=== PATIENT | male | born 1955 | race Caucasian/White ===

== ENCOUNTER 2021-09-01 14:10 | Inpatient (IN) | payer OTHER, MEDICAID ==
[~2021-09-01] VITALS: Ht 152.4 cm; Wt 66.7 kg
[~2021-09-01 14:10] MED LIST: [UNRECOGNIZED DRUG - REMARK] PO
[2021-09-01 14:29] VITALS: BP 124/75
[2021-09-01 15:38] LABS: BASOPHILS % (AUTO) 0.2 % (0.0-2.0); EOSINOPHILS # (AUTO) 0.1 K/uL (0-0.4); EOSINOPHILS % (AUTO) 1.2 % (0.0-4.0); HEMATOCRIT 39.9 % (36-52); LYMPHOCYTES # (AUTO) 1.1 K/uL (2.0-11.5); LYMPHOCYTES % (AUTO) 9.9 % (20.5-51.1); MEAN CORPUSCULAR HEMOGLOBIN 25 pg (27-31); MEAN CORPUSCULAR HGB CONC 33 g/dL (33-37); MEAN CORPUSCULAR VOLUME 75.6 fL (80-94); MONOCYTES # (AUTO) 0.6 K/uL (0.8-1.0); MONOCYTES % (AUTO) 5.5 % (1.7-9.3); NEUTROPHILS # (AUTO) 9.4 K/uL (1.8-7.7); NEUTROPHILS % (AUTO) 83.2 % (42.2-75.2); PLATELET COUNT (AUTO) 155 K/uL (140-450); RED BLOOD CELL COUNT(AUTO) 5.28 MIL/uL (4.20-6.10); RED CELL DISTRIBUTION WIDTH 16.1 % (11.6-13.7); WHITE BLOOD COUNT (AUTO) 11.3 K/uL (4.8-10.8)
[2021-09-01 15:47] LABS: ANION GAP 14.7 (8-16); CARBON DIOXIDE 26.6 mmol/L (21-32); CREATININE 0.9 mg/dL (0.6-1.3); POTASSIUM 4.3 mmol/L (3.5-5.1); TOTAL BILIRUBIN 0.5 mg/dL (0.0-1.0)
[2021-09-01] MEDS ORDERED: ASPIRIN 325 MG TAB PO ONE (19:05)
--- NOTE | 2021-09-01 19:18 | NUR ---
65 y/o male, c/o cp, abd pain and khanna that started yesterday. skin is pink/warm/dry. a&o x4 with even and steady gait. lungs clear bl, heart rate even and regular. pt denies dysuria, hematuria, urinary frequency or retention, or anyone sick in the household with the same symptoms. pt denies any fever, sob, or cough at this time. pt states pain is 10/10 at this time. ermd made aware of pt. pmh: htn, dm2, enlarged prostate nka med: states he took dm2 meds, but not htn
[2021-09-01] MEDS ORDERED: NITROGLYCERIN 0.4 MG TAB SL ONE (19:20)
[2021-09-01] MEDS ORDERED: ONDANSETRON 4 MG/2 ML VIAL IM/IVP PRN (21:35)
[2021-09-01] MEDS ORDERED: MORPHINE SULFATE 2 MG/ML SYR IVP PRN (21:35)
[2021-09-01] MEDS ORDERED: ACETAMINOPHEN 325 MG TAB PO PRN (21:35)
[2021-09-01] MEDS ORDERED: NITROGLYCERIN 0.4 MG TAB SL PRN (21:35)
[2021-09-01] MEDS ORDERED: guaiFENesin DM 200/20 MG-10 ML 10 ML UDC PO PRN (21:35)
[2021-09-01] MEDS ORDERED: POTASSIUM CHLORIDE 10 MEQ TABER PO PRN (21:35)
[2021-09-01] MEDS ORDERED: DOCUSATE SODIUM 100 MG GELCAP PO PRN (21:35)
[2021-09-01] MEDS ORDERED: HYDROcodone/APAP 7.5/325 MG 1 TAB PO PRN (21:35)
[2021-09-01] MEDS ORDERED: LOVENOX 1MG/KG Q12H SUBQ SCH (21:55)
[2021-09-01] MEDS ORDERED: ASPIRIN 325 MG TAB ONE (22:32)
[2021-09-01 22:44] LABS: MAGNESIUM 1.6 mg/dL (1.8-2.4); PHOSPHORUS 4.5 mg/dL (2.5-4.9)
--- NOTE | 2021-09-01 23:00 | NUR ---
65YR OLD MALE C/O CP SOB. PT IS A TELE HOLD. 06/24 PAIN LEVEL . A&OX4. ICELANDIC SPEAKING UNDERSTANDS DIVEHI. [id number]% RA NO DISTRESS NOTED. PT ON MONITOR . PT STATES ABD PAIN RADIATES TO CHEST THEN TO NECK, JAW AND BACK. PT ON BED RESTING RESP EVEN AND UNLABORED. SIDE RAILS UP X1 BED AT LOWEST POSITION NKDA HTN DM
--- NOTE | 2021-09-01 23:58 | NUR ---
TROP 2066. DR BROWER NOTIFED VIA TEXT AWAITING FOR A REPLY
[2021-09-02] MEDS ORDERED: ENOXAPARIN 60 MG/0.6 ML SYR SUBQ ONE (00:26)
--- NOTE | 2021-09-02 00:40 | NUR ---
PT RESTING IN BED RESP EVEN AND UNLABORED.
[2021-09-02] MEDS: ZOLPIDEM 5 MG TAB PO PRN (02:36)
--- NOTE | 2021-09-02 02:50 | NUR ---
URINE COLLECTED AND SENT TO LAB
--- NOTE | 2021-09-02 03:40 | NUR ---
PT SLEEPING RESP EVEN AND UNLABORED. ON BEDSIDE MONITOR. SIDE RAILS UP X1. BED AT LOWEST POSITION. WILL CONTINUE TO MONITOR AND OFFER SUPPORT WHEN NEEDED
--- NOTE | 2021-09-02 05:03 | NUR ---
COVID SWAB COLLECTED AND SENT
[2021-09-02 07:18] LABS: BASOPHILS % (AUTO) 0.3 % (0.0-2.0); EOSINOPHILS # (AUTO) 0.2 K/uL (0-0.4); EOSINOPHILS % (AUTO) 1.9 % (0.0-4.0); HEMATOCRIT 38.1 % (36-52); HEMOGLOBIN 12.5 g/dL (12.0-18.0); LYMPHOCYTES # (AUTO) 2.4 K/uL (2.0-11.5); LYMPHOCYTES % (AUTO) 25.6 % (20.5-51.1); MEAN CORPUSCULAR HEMOGLOBIN 25 pg (27-31); MEAN CORPUSCULAR HGB CONC 33 g/dL (33-37); MEAN CORPUSCULAR VOLUME 75.3 fL (80-94); MONOCYTES # (AUTO) 0.8 K/uL (0.8-1.0); MONOCYTES % (AUTO) 8.1 % (1.7-9.3); NEUTROPHILS % (AUTO) 64.1 % (42.2-75.2); PLATELET COUNT (AUTO) 152 K/uL (140-450); RED BLOOD CELL COUNT(AUTO) 5.06 MIL/uL (4.20-6.10); RED CELL DISTRIBUTION WIDTH 16.2 % (11.6-13.7); WHITE BLOOD COUNT (AUTO) 9.3 K/uL (4.8-10.8)
--- NOTE | 2021-09-02 07:25 | NUR ---
REPORT RECIEVED FROM KLAUS VAZQUEZ FOR TRANSFER OF CARE.
[2021-09-02 07:32] LABS: ANION GAP 13.9 (8-16); CARBON DIOXIDE 26.1 mmol/L (21-32); CREATININE 0.9 mg/dL (0.6-1.3)
--- NOTE | 2021-09-02 08:26 | NUR ---
Patient was offered his breakfast tray, patient does not want to eat at this moment. Tray left at bedside.
--- NOTE | 2021-09-02 08:44 | NUR ---
Patient is sitting up on bed and assisted with his breakfast tray.
[2021-09-02] MEDS ORDERED: METOPROLOL 25 MG TAB PO SCH (09:00)
[2021-09-02] MEDS ORDERED: lisinopriL 5 MG TAB PO SCH (09:00)
--- NOTE | 2021-09-02 09:00 | NUR ---
Patient ambulated with steady gait to the restroom.
[2021-09-02] MEDS ORDERED: LISI20TA29 PO (09:19)
[2021-09-02] MEDS ORDERED: METF-350 PO (09:19)
[2021-09-02] MEDS ORDERED: ATOR40TA PO (09:19)
[2021-09-02] MEDS: ECOTRIN 81 MG TABEC PO SCH (09:20)
[2021-09-02] MEDS: PANTOPRAZOLE 40 MG TABEC PO SCH (09:21)
[2021-09-02] MEDS ORDERED: CRUSHER, PILL MC ONE (09:22)
--- NOTE | 2021-09-02 09:55 | NUR ---
Med Recon completed.
--- NOTE | 2021-09-02 10:02 | NUR ---
Ultrasound at bedside.
[2021-09-02] MEDS ORDERED: TERA5CAP8 PO (10:05)
[2021-09-02] MEDS ORDERED: FINA5TAB1 PO (10:05)
--- NOTE | 2021-09-02 10:33 | NUR ---
Clarified Lovenox order with Dr. Valiente. Recieved order to D/C Lovenox 1mg/kg and start Heparin 5000 Sub Q BID. Orders are carried out.
--- NOTE | 2021-09-02 12:45 | NUR ---
Patient is sitting up eating his lunch.
--- NOTE | 2021-09-02 14:03 | NUR ---
PATIENT HAS BEEN SCREENED AND CATEGORIZED LOW NUTRITION RISK. PATIENT WILL BE SEEN WITHIN 7 DAYS OF ADMISSION. 09/08/[address]
[2021-09-02] MEDS ORDERED: HEPARIN PER PHARMACY MC PRN (14:20)
[2021-09-02] MEDS ORDERED: INSULIN LISPRO SLIDING SCALE 100 UNITS/ML VIAL SUBQ PRN (14:20)
[2021-09-02] MEDS ORDERED: hePARIN / DEXT 5% PREMIX 250 ML IV SCH (14:20)
[2021-09-02] MEDS ORDERED: DEXTROSE 50% 50 ML SYR IVP PRN (14:20)
--- NOTE | 2021-09-02 14:25 | NUR ---
Dr. Valiente evaluating patient at bedside.
--- NOTE | 2021-09-02 14:55 | NUR ---
LAB AT BEDSIDE.
--- NOTE | 2021-09-02 16:00 | NUR ---
Patient ambulated with steady gait to restroom.
[2021-09-02] MEDS: ENOXAPARIN 60 MG/0.6 ML SYR SUBQ SCH (16:20)
--- NOTE | 2021-09-02 16:20 | NUR ---
New order for Lovenox clarified with Dr. Freitas. Heparin was given 4 hours ago and per MD michel to give Lovenox.
[2021-09-02] MEDS: BLOOD GLUCOSE MONITORING 1 DEV DEV FS SCH ×2 (16:49→21:32)
[2021-09-02] MEDS ORDERED: ATORVASTATIN 20 MG TAB PO SCH ×2 (17:00→21:00)
[2021-09-02] MEDS: metFORMIN 850 MG TAB PO SCH (17:28)
--- NOTE | 2021-09-02 18:13 | NUR ---
Patient was offered his dinner tray. Patient is sitting up eating meal.
--- NOTE | 2021-09-02 19:19 | NUR ---
Pt report given to KLAUS Henson. Transfer of care at this time.
--- NOTE | 2021-09-02 20:12 | NUR ---
Report received from Natividad TELLES pt was still in ER to be admited to ICU room #1
--- NOTE | 2021-09-02 20:23 | NUR ---
Patient will be admitted to care of [facility]. Admited to ICU. Will go to room 1. Belongings list completed. Report to
--- NOTE | 2021-09-02 20:30 | NUR ---
Assumed pt care admitted to ICU room #1 awake alert ambulatory denies chest pain, dizziness, no complain assisted to bed vitals signs stable, HR 63 sinus rhythm, afebrile 97.3 , on room air 96% O2 SAT, and no sign of distress noted. Orentation to the unit education on care plan, he verbalized understanding pt understands [place] but speaks moroccan fluently, left upper extremities in sling due to injury sustained at work on also two points of incision sites noted on the shoulder still painful to touch will continue to monitor and treat as per care plan.
[2021-09-02 22:00] VITALS: BP 123/85
[2021-09-02 23:16] LABS: APPEARANCE,URINE CLEAR (CLEAR); BILIRUBIN,URINE NEGATIVE (NEGATIVE); BLOOD, URINE NEGATIVE (NEGATIVE); COLOR,URINE YELLOW (YELLOW); LEUKOCYTE ESTERASE ,URINE NEGATIVE (NEGATIVE); NITRITE, URINE NEGATIVE (NEGATIVE); PH,URINE 6.5 (5.0-9.0); UGLUCOSE NEGATIVE (NEGATIVE)
--- NOTE | 2021-09-02 23:30 | NUR ---
Assisted with CHG bath pt tolerates well stood at the bedside, linen changed pt stood at the bedside denies dizziness no complain and vitals stable .
[2021-09-02 23:48] LABS: BARBITURATE, URINE NEGATIVE ng/ml (NEG <=200); BENZODIAZEPINE, URINE NEGATIVE ng/mL (NEG <=200); CANNABINOID, URINE NEGATIVE ng/mL (NEG <=50); COCAINE, URINE NEGATIVE ng/mL (NEG <=300); OPIATE, URINE NEGATIVE ng/mL (NEG <=2000); PHENCYCLIDINE SCREEN,URINE NEGATIVE ng/mL (NEG <=25)
[2021-09-03] MEDS: ZOLPIDEM 5 MG TAB PO PRN (01:27)
--- NOTE | 2021-09-03 02:30 | NUR ---
@0127 Pt asked for something to help hiim sleep, Ambien and Hydrocodone for sholder pain 5/10 effective intervention pt fell asleep and no sign of distress noted
[2021-09-03] MEDS: ENOXAPARIN 60 MG/0.6 ML SYR SUBQ SCH ×2 (04:23→16:48)
[2021-09-03 06:08] LABS: BASOPHILS % (AUTO) 0.4 % (0.0-2.0); EOSINOPHILS # (AUTO) 0.3 K/uL (0-0.4); HEMATOCRIT 39.6 % (36-52); LYMPHOCYTES # (AUTO) 2.6 K/uL (2.0-11.5); LYMPHOCYTES % (AUTO) 33.3 % (20.5-51.1); MEAN CORPUSCULAR HEMOGLOBIN 25 pg (27-31); MEAN CORPUSCULAR HGB CONC 33 g/dL (33-37); MEAN CORPUSCULAR VOLUME 75.8 fL (80-94); MONOCYTES # (AUTO) 0.7 K/uL (0.8-1.0); MONOCYTES % (AUTO) 8.8 % (1.7-9.3); NEUTROPHILS # (AUTO) 4.1 K/uL (1.8-7.7); NEUTROPHILS % (AUTO) 53.5 % (42.2-75.2); PLATELET COUNT (AUTO) 157 K/uL (140-450); RED BLOOD CELL COUNT(AUTO) 5.22 MIL/uL (4.20-6.10); RED CELL DISTRIBUTION WIDTH 16.4 % (11.6-13.7); WHITE BLOOD COUNT (AUTO) 7.7 K/uL (4.8-10.8)
[2021-09-03 07:01] LABS: ANION GAP 15.1 (8-16); POTASSIUM 4.1 mmol/L (3.5-5.1)
--- NOTE | 2021-09-03 07:50 | NUR ---
Bedside report given to Shalini RN for continuity of care, as at this time pt awake alert vitals signs stable no changes in care plan and condition.
--- NOTE | 2021-09-03 07:55 | NUR ---
RECEIVED REPORT FROM KOKI DESAI AT THIS TIME. PT IS A&OX4, 97% ON RA, CALM AND COOPERATIVE, NSR ON PERSONNEL RESEARCH SCIENTIST. IV TO RIGHT HAND 22G SL. URINAL AT PT BEDSIDE. VSS WILL CONTINUE TO MONITOR.
[2021-09-03 08:00] VITALS: BP 119/58
[2021-09-03] MEDS: BLOOD GLUCOSE MONITORING 1 DEV DEV FS SCH ×4 (08:02→20:31)
[2021-09-03] MEDS: metFORMIN 850 MG TAB PO SCH ×2 (09:05→16:44)
[2021-09-03] MEDS: lisinopriL 20 MG TAB PO SCH (09:06)
[2021-09-03] MEDS: ECOTRIN 81 MG TABEC PO SCH (09:06)
[2021-09-03] MEDS: ATORVASTATIN 80 MG TAB PO SCH (09:07)
[2021-09-03] MEDS: PANTOPRAZOLE 40 MG TABEC PO SCH (09:08)
[2021-09-03] MEDS: FINASTERIDE 5 MG TAB PO SCH (09:08)
[2021-09-03 10:00] VITALS: BP 106/60
--- NOTE | 2021-09-03 10:43 | NUR ---
GAVE REPORT TO KOKI MAST IN TELE FOR PENDING TRANSFER.
--- NOTE | 2021-09-03 11:00 | NUR ---
REPORT RECEIVED BY DIE CUTTING MACHINE OPERATOR, JOHN. PT A/O X3. TONGAN SPEAKING WITH LITTLE GIBRALTARIAN. PT DENIES PAIN AT THIS TIME. NO SOB OR RESPIRATORY DISTRESS. ON RA. ON TELE. CARDIAC DIET. URINAL AT BEDSIDE. ENCOURAGE PT TO NOT EXERT HIMSELF. R HAND #22 SL. L ARM SLING IN PLACE. NEEDS ALL MET AT THIS TIME. ORIENTED PT TO ROOM. SAFETY MEASURES IN PLACE.
--- NOTE | 2021-09-03 11:18 | NUR ---
DC PLANNING: ORDER RECEIVED FOR PATIENT TO GO TO [facility] IN AM FOR A CARDIAC CATH AT 0730. CM SPOKE WITH OP SCHEDULING, ORDERS AND CLINICALS FAXED TO THEM, CURRENTLY BEING REVIEWED BY THE CHARGE NURSE SON. CM WAITING FOR SON TO CALL TO CONFIRM ACCEPTANCE FOR PROCEDURE, AMBULANCE TRANSPORT WILL THEN BE ARRANGED. THE PATIENT PRESENTED TO THE ED WITH C/O UPPER ABDOMINAL PAIN WITH RADIATION TO THE CHEST AND JAW. ALSO C/O SOB, N/V. HO GERD, HTN AND HYPERLIPIDEMIA. DELTA TROPONIN 121, EKG SHOWED T WAVE INVERSIONS, SUBSEQUENT HIGH SENSITIVITY TROPONINS WERE 2067 AND 6067. CARDIOLOGY CONSULT WITH DR TEJADA ORDERED, HE THEN ARRANGED FOR THE CARDIAC CATH AT [facility]. CM WILL FOLLOW. Addendum: 09/03/21 at 1449 by Carly Diaz CM DC PLANNING: THE PATIENT WILL BE PICKED UP BY [facility] ([phone]) AT 0600 FOR A 0730 HEART CATH. RETURN TRIP FROM [facility] SET UP ON WILL CALL WITH [facility]. MEDICARE DOES NOT COVER AMBULANCE TRANSPORT, TRIP WILL BE VOUCHERED. MARKER DELIVERY TIME ENDORSED TO THE CHARGE NURSE ON [facility]. WILL FOLLOW. Addendum: 09/04/21 at 0925 by Carly Diaz CM DC PLANNING: MESSAGE LEFT FOR DR TEJADA INFORMING HIM OF CANCELLATION OF CARDIAC CATH BECAUSE AMBULANCE WAS LATE, PATIENT ARRIVED 10 MINUTES LATE TO [facility]. BALTA ALSO SPOKE WITH ESPERANZA AT [facility] TO DISCUSS WHAT HAPPENED AND TO ASK ABOUT FINANCIAL RESPONSIBILITY FOR THIS HOSPITAL FOR TRANSPORT GIVEN THAT PROCEDURE DID NOT HAPPEN BECAUSE [facility] WAS LATE. ESPERANZA ENDORSED THAT THEY'VE HAD MULTIPLE 911 CALLS, PATIENT NEEDS ALSO TRANSPORT AND ALS CREW WAS DIVERTED TO 911 CALL BEFORE PICKING PATIENT UP. ESPERANZA STATES SHE WILL MAKE A NOTE OF REQUEST BY CM AND ENDORSE TO BILLING. CM WILL FOLLOW. Addendum: 09/04/21 at 1333 by Carly Diaz CM DC PLANNING: PATIENT RESCHEDULED FOR CARDIAC CATH AT [place] FOR 12 PM TOMORROW, NEEDS TO BE THERE AT 8 AM. CM SCHEDULED [facility] MARKER DELIVERY AT 0700 ON WEDNESDAY, 09/05, ALS LEVEL. CM WILL FOLLOW. Addendum: 09/04/21 at 1604 by Carly Diaz CM DC PLANNING: MARKER DELIVERY TIME WITH [facility] TOMORROW, 09/05 CHANGED TO 0200 PER RICH BENSON REQUEST. CM WILL FOLLOW.
[2021-09-03 12:38] VITALS: BP 109/75
[2021-09-03 16:00] VITALS: BP 107/85
--- NOTE | 2021-09-03 17:00 | NUR ---
DR. TEJADA ROUNDED ON PT.
--- NOTE | 2021-09-03 18:43 | NUR ---
PT RESTING COMFORTABLY. PT DENIES CHEST PAIN. PT IN NO DISTRESS. NO SOB NOTED. NEEDS ALL MET AT THIS TIME. SAFETY MEASURES IN PLACE.
--- NOTE | 2021-09-03 19:13 | NUR ---
REPORT GIVEN TO KOKI DESAI FOR CONTINUITY OF CARE.
--- NOTE | 2021-09-03 19:15 | NUR ---
RECEIVED REPORT FROM AM NURSE FOR CONTINUITY OF CARE. PT IS STABLE. AWAKE IN BED.A&OX4.DENIES PAIN. ON RM AIR H0PME=98% NO S/S OF ACUTE DISTRESS. RR EVEN AND UNLABORED WITH EQUAL CHEST RISE. GI INTACT. PT'S SKIN IS INTACT. WEARS A L ARM SLING STATUS POST SHOULDER MUSCLE REPAIR JULY 2021. PT IS AMBULATORY AND CONTINENT.ALL SAFETY MEASURES IN PLACE. CALL LIGHT WITHIN REACH. WILL CONTINUE TO MONITOR.
[2021-09-03 20:00] VITALS: BP 101/62
--- NOTE | 2021-09-03 21:30 | NUR ---
HS MEDS GIVEN NB=199 NO INSULIN COVERAGE NEEDED. REVIEWED PROCEDURE PLAN WITH PATIENT. NPO STATUS AFTER MN. FOR AN 0600 AM PICKUP BY AMBULANCE TO [facility] FOR A CARDIAC CATH @ 0730. PT VERBALIZED UNDERSTANDING.
[2021-09-04] VITALS: BP 115/73
[2021-09-04 04:00] VITALS: BP 107/85
--- NOTE | 2021-09-04 04:00 | NUR ---
CALLED [facility] RE PT CARDIAC CATH THIS MORNING AT 0730. NO ANSWER. LEFT MESSAGE FOR CATH DEPARTMENT. WILL CONTINUE TO MONITOR.
--- NOTE | 2021-09-04 05:00 | NUR ---
CALLED [facility] SPOKE WITH JASON WHO NOTED THE AGRICULTURAL INSPECTOR TIME.
--- NOTE | 2021-09-04 06:30 | NUR ---
NO AMBULANCE. CALLED [facility] AGAIN TO REMIND THEM OF EXHIBIT ARTIST TIME. [facility] AMBULANCE ARRIVED AT 0640. REPORT GIVEN. BS= 95 NO COVERAGE NEEDED. PLAN FOR PROCEDURE EXPLAINED TO PT IN [place] AND PT LEFT MST UNIT AT 0645 VIA [facility]UR[facility] WITH TWO TRANSPORTERS. AT 0700 RICH BENSON CALLED TO ASK ABOUT ETA OF AMBULANCE.
[2021-09-04] MEDS: BLOOD GLUCOSE MONITORING 1 DEV DEV FS SCH ×4 (07:09→20:37)
--- NOTE | 2021-09-04 07:24 | NUR ---
RECEIVED PHONE CALL FROM RICH LODGE ATTENDANT, PER RN PT ARRIVED TOO LATE, THE DR HAS ANOTHER PROCEDURE ALREADY, SO PT WAS RESCHEDULED TOMORROW.
--- NOTE | 2021-09-04 07:25 | NUR ---
RECEIVED REPORT FROM BAD CLOTH CHECKER NURSE FOR CONTINUITY OF CARE. PT CURRENTLY AT [facility] FOR SUPPOSED CARDIAC CATH BUT BAD CLOTH CHECKER NURSE STATED PROCEDURE WAS CANCELLED AND IS COMING BACK.
[2021-09-04 07:56] LABS: HEMATOCRIT 43.7 % (36-52); HEMOGLOBIN 14.4 g/dL (12.0-18.0); MEAN CORPUSCULAR HEMOGLOBIN 25 pg (27-31); MEAN CORPUSCULAR HGB CONC 33 g/dL (33-37); PLATELET COUNT (AUTO) 201 K/uL (140-450); RED BLOOD CELL COUNT(AUTO) 5.75 MIL/uL (4.20-6.10); RED CELL DISTRIBUTION WIDTH 16.4 % (11.6-13.7); WHITE BLOOD COUNT (AUTO) 9.8 K/uL (4.8-10.8)
[2021-09-04 07:57] LABS: BASOPHILS % (AUTO) 0.3 % (0.0-2.0); EOSINOPHILS # (AUTO) 0.4 K/uL (0-0.4); LYMPHOCYTES # (AUTO) 3.3 K/uL (2.0-11.5); LYMPHOCYTES % (AUTO) 33.4 % (20.5-51.1); MONOCYTES # (AUTO) 0.9 K/uL (0.8-1.0); MONOCYTES % (AUTO) 8.7 % (1.7-9.3); NEUTROPHILS # (AUTO) 5.3 K/uL (1.8-7.7); NEUTROPHILS % (AUTO) 53.6 % (42.2-75.2)
[2021-09-04 08:00] VITALS: BP 111/71
[2021-09-04] MEDS: metFORMIN 850 MG TAB PO SCH ×2 (08:00→17:32)
--- NOTE | 2021-09-04 08:03 | NUR ---
[facility] [place] [facility]. PT'S PROCEDURE WAS CANCELLED, PER [facility] STAFF PT NEEDS TO ARRIVE 1HR PRIOR TO SCHEDULED PROCEDURE TIME, PT ARRIVED LATE 0705, PT'S PROCEDURE SCHEDULED AT 0700 AND DOCTOR HAS ANOTHER PROCEDURE SCHEDULED. WILL FOLLOW UP PROCEDURE TIME TOMORROW. DR NIX MADE AWARE. OKAY TO GIVE LOVENOX TODAY AND HOLD ASPIRIN.
[2021-09-04] MEDS: PANTOPRAZOLE 40 MG TABEC PO SCH (09:00)
[2021-09-04] MEDS: ECOTRIN 81 MG TABEC PO SCH (09:00)
[2021-09-04] MEDS: FINASTERIDE 5 MG TAB PO SCH (09:00)
[2021-09-04] MEDS: lisinopriL 20 MG TAB PO SCH (09:00)
[2021-09-04] MEDS: ATORVASTATIN 80 MG TAB PO SCH (09:00)
[2021-09-04] MEDS: ENOXAPARIN 60 MG/0.6 ML SYR SUBQ SCH ×2 (09:00→20:38)
[2021-09-04 09:10] LABS: ANION GAP 14.5 (8-16); CARBON DIOXIDE 27.1 mmol/L (21-32); POTASSIUM 3.6 mmol/L (3.5-5.1)
[2021-09-04 09:11] LABS: CREATININE 0.9 mg/dL (0.6-1.3)
--- NOTE | 2021-09-04 10:52 | NUR ---
TRIED TO CALL [facility] CARDIAC CATH DEPT, NO ANSWER, LEFT MESSAGE
--- NOTE | 2021-09-04 11:36 | NUR ---
ACCUCHECK DONE, PT DENIES ANY PAIN AT THIS TIME
[2021-09-04 12:00] VITALS: BP 118/73
--- NOTE | 2021-09-04 12:05 | NUR ---
CALLED [facility], SPOKE WITH PATT REGARDING PT'S RESCHEDULED CARDIAC CATH APPOINTMENT TOMORROW. PER PATT, PT IS SCHEDULED AT 12NOON BUT NEEDS TO BE THERE AT 0800. LEFT MESSAGE TO DR TEJADA
--- NOTE | 2021-09-04 12:32 | NUR ---
CLARIFIED CURRENT DIET TO DR NIX, CARDIAC DIET FOR NOW AND NPO FROM MIDNIGHT TONIGHT Addendum: 09/04/21 at 1233 by Nicolasa Oliveros RN CALLED [facility] FOR PT'S LUNCH TRACarlos Alberto
--- NOTE | 2021-09-04 15:39 | NUR ---
PT AWAKE IN BED. BREATHING SYMMETRICAL ON ROOM AIR. NO C/O PAIN.
[2021-09-04 16:00] VITALS: BP 104/70
--- NOTE | 2021-09-04 16:12 | NUR ---
PT MADE AWARE OF TANK CAR REPAIRER TIME TOMORROW OF 0200 GOING TO [facility]. REMINDED NPO AFTER MIDNIGHT.
--- NOTE | 2021-09-04 19:06 | NUR ---
ENDORSED PT TO MOLD CLOSER HELPER NURSE FOR CONTINUITY OF CARE. ALSO ENDORSED CFO TIME OF 0200
--- NOTE | 2021-09-04 19:07 | NUR ---
RECEIVED REPORT FROM AM NURSE GINA RN FOR CONTINUITY OF CARE. PT IS STABLE. A&OX4,PANAMANIAN SPEAKER BUT ABLE TO MAKE NEEDS KNOWN.DENIES PAIN. ON RM AIR/O2 WITH NO ACUTE DISTRESS NOTICED. RR EVEN AND UNLABORED WITH EQUAL CHEST RISE. GI INTACT. PT'S SKIN IS INTACT. PT OIS AMBULATORY AND CONTINENT. CALL LIGHT WITHIN REACH. WILL CONTINUE TO MONITOR.
[2021-09-04 20:00] VITALS: BP 97/68
--- NOTE | 2021-09-04 21:00 | NUR ---
HS LOVENOX GIVEN. PLT= 201. AL=398 COVERED WITH 2 UNITS HUMALOG INSULIN PER SLIDING SCALE. EXPLAINED TO PT ABOUT NPO AFTER MN STATUS. TRANSPORTATION TO [facility] IS AT 0200 FOR CARDIAC CATH PROCEDURE LATER ON 09/05/21. AFTER ROMANSH TRANSLATION BY STAFF PT VERBALIZED UNDERSTANDING. VSS: BP=97/68, P-111, RR-18,T-98.1, O2 SAT=94% ON RM AIR.. EKG:ST HR 107. ALL SAFETY MEASURES IN PLACE .WILL CONTINUE TO MONITOR.
[2021-09-05] VITALS: BP 100/76
--- NOTE | 2021-09-05 00:35 | NUR ---
GRISELDA HOLMANDIRECTOR RETAIL BRAND DEVELOPMENT FROM [facility] CALLED TO VERIFY TRANSPORTATION TO THEM AT 0200 BY [facility] AMBULANCE. PT IS TO BE ADMITTED TO [address] [place] [address] [id number]. RECENT COVID TEST NEEDED. I REPORTED LATEST COVID TEST DONE ON 09/02/21 COVID (-) RAPID.
--- NOTE | 2021-09-05 01:15 | NUR ---
[facility] SHOWED UP EARLY ON MST UNIT TO TRANSPORT PT EMILIANO RAPHAELVICTORINO WEBB RM 105A. AT 0125 PT LEFT UNIT ON [facility] TAKING ALL PERSONAL BELONGINGS:CLOTHES, CELLPHONE WITH MD UROLOGIST, GLASSES AND WEARING L ARM SPLINT TO IMMOBILIZE HIS L SHOULDER. DENIES CHEST PAIN. WALKED TO [facility] WITH STEADY GAIT. PT IS STABLE.
--- NOTE | 2021-09-05 01:30 | NUR ---
CALLED [facility] UNIT [address] [place]. GAVE TELEPHONE REPORT TO LOVE BISHOP RN.
--- NOTE | 2021-09-05 06:50 | NUR ---
PT OFF UNIT AT [facility] FOR A CARDIAC CATHETERIZATION LATER TODAY AROUND 12 NOON. WILL ENDORSE TO DAY SHIFT RN TO FOLLOW UP.
--- NOTE | 2021-09-05 07:05 | NUR ---
RECEIVED REPORT FROM CERTIFIED LEGAL SECRETARY SPECIALIST NURSE FOR CONTINUITY OF CARE. PT CURRENTLY AT [facility] FOR CARDIAC CATH.
[2021-09-05] MEDS: BLOOD GLUCOSE MONITORING 1 DEV DEV FS SCH ×3 (07:30→16:54)
[2021-09-05] MEDS: metFORMIN 850 MG TAB PO SCH ×2 (09:38→17:00)
[2021-09-05] MEDS: ECOTRIN 81 MG TABEC PO SCH (10:12)
[2021-09-05] MEDS: ATORVASTATIN 80 MG TAB PO SCH (10:12)
[2021-09-05] MEDS: FINASTERIDE 5 MG TAB PO SCH (10:12)
[2021-09-05] MEDS: PANTOPRAZOLE 40 MG TABEC PO SCH (10:13)
[2021-09-05] MEDS: lisinopriL 20 MG TAB PO SCH (10:13)
--- NOTE | 2021-09-05 10:15 | NUR ---
RECEIVED CALL AND REPORT FROM KOKI GASCA FROM [place]. PT'S KEL[facility] OR [facility] GATHERER IS 11AM. PT HAS CARDIAC CATHETERIZATION DONE ON RIGHT WRIST. KEEP ARM BOARD ON RIGHT WRIST FOR IMMOBILIZATION FOR 24HRS AND MAY REMOVE TOMORROW 09/06/21 AT 0630. ALSO TO HOLD METFORMIN FOR 48HRS, MAY RESTART METFORMIN ON 09/07/21. ALSO RECOMMENDATION FOR OPEN HEART SURGERY BY DR FAYE.
--- NOTE | 2021-09-05 12:30 | NUR ---
PT BACK FROM [place] VIA [facility] TRANSPORT IN [facility]. PT WITH ARM BOARD ON RIGHT WRIST. NO C/O PAIN AT THIS TIME. DR NIX MADE AWARE THAT PT'S BACK, ALSO MADE AWARE PER REPORT TO HOLD METFORMIN FOR 2DAYS.
[2021-09-05 12:51] VITALS: BP 150/80
[2021-09-05 14:11] LABS: BASOPHILS % (AUTO) 0.4 % (0.0-2.0); EOSINOPHILS # (AUTO) 0.2 K/uL (0-0.4); EOSINOPHILS % (AUTO) 3.8 % (0.0-4.0); HEMATOCRIT 40.9 % (36-52); HEMOGLOBIN 13.6 g/dL (12.0-18.0); LYMPHOCYTES # (AUTO) 1.6 K/uL (2.0-11.5); LYMPHOCYTES % (AUTO) 26.7 % (20.5-51.1); MEAN CORPUSCULAR HEMOGLOBIN 25 pg (27-31); MEAN CORPUSCULAR HGB CONC 33 g/dL (33-37); MEAN CORPUSCULAR VOLUME 74.9 fL (80-94); MONOCYTES # (AUTO) 0.6 K/uL (0.8-1.0); MONOCYTES % (AUTO) 10.4 % (1.7-9.3); NEUTROPHILS # (AUTO) 3.5 K/uL (1.8-7.7); NEUTROPHILS % (AUTO) 58.7 % (42.2-75.2); PLATELET COUNT (AUTO) 171 K/uL (140-450); RED BLOOD CELL COUNT(AUTO) 5.47 MIL/uL (4.20-6.10); RED CELL DISTRIBUTION WIDTH 15.8 % (11.6-13.7); WHITE BLOOD COUNT (AUTO) 5.9 K/uL (4.8-10.8)
[2021-09-05 14:24] LABS: ANION GAP 12.8 (8-16); CREATININE 0.9 mg/dL (0.6-1.3); POTASSIUM 3.8 mmol/L (3.5-5.1)
--- NOTE | 2021-09-05 15:30 | NUR ---
PT SEEN BY DR TEJADA
[2021-09-05 16:00] VITALS: BP 131/73
[2021-09-05] MEDS ORDERED: ASPI-1856 PO (16:09)
[2021-09-05] MEDS ORDERED: LIP80 PO (16:09)
[2021-09-05 17:16] VITALS: BP 131/73
--- NOTE | 2021-09-05 17:16 | NUR ---
METFORMIN NOT GIVEN, PT S/P CARDIAC CATH, NO METFORMIN FOR 2 DAYS. PT AWARE. PT FOR DISCHARGE AND AWARE
--- NOTE | 2021-09-05 18:04 | NUR ---
PT DISCHARGED TO HOME WITH BELONGINGS AND PAPERWORKS, DISCHARGE INSTRUCTIONS PROVIDED. IN STABLE CONDITION Addendum: 09/05/21 at 1806 by Nicolasa Vannessa Arlin RN IV LINE REMOVED, CATHETER INTACT, NO BLEEDING NOTED.
== END 2021-09-05 18:12 | disposition home or self-care (01) | DRG 282 ==
LOC: MED 14:10 → MTU 21:37 → MIC 09-02 19:03 → MTU 09-03 10:00
PROVIDERS: ADMIT Student in an Organized Health Care Education/Training Program; ATTEND Student in an Organized Health Care Education/Training Program
DX: I21.4 Non-ST elevation (NSTEMI) myocardial infarction (principal); E11.9 Type 2 diabetes mellitus without complications; I10 Essential (primary) hypertension; E78.5 Hyperlipidemia, unspecified; N40.0 Benign prostatic hyperplasia without lower urinary tract symptoms; I25.10 Atherosclerotic heart disease of native coronary artery without angina pectoris; Z20.822 Contact with and (suspected) exposure to COVID-19; Z79.899 Other long term (current) drug therapy; R10.9 Unspecified abdominal pain
CPT/HCPCS: 36415; 71045; 80048; 80053; 80305; 81003; 82150; 82948; 83036; 83690; 83735; 83880; 84100; 84484; 85025; 85610; 85730; 87081; 93005; 96372; 97116; 99285; J1644; J1650